=== PATIENT | female | born 1965 ===

== ENCOUNTER 2018-01-28 20:18 | Emergency (ER) | payer OTHER ==
[2018-01-28 20:38] VITALS: RESP 20
[2018-01-28] MEDS ORDERED: Sodium Chloride 0.9% 500 ML IV ONE (21:53)
--- NOTE | 2018-01-28 21:54 | C.PDOC ---
History Of Present Illness 52yo female, otherwise well, comes to ER for evaluation of vaginal bleeding x 10 days. Patient states her LMP was in August, and since then she has not had a menstrual period. Patient states she has been having heavy bleeding, and today with clots as well; she uses around 6 pads per day. Patient also reports feeling weak and lightheaded. No fever, chills, chest pain, shortness of breath, abdominal pain or other complaints. Time Seen by Provider: 01/28/18 20:54 Chief Complaint (Nursing): Female Genitourinary History Per: Patient History/Exam Limitations: no limitations Onset/Duration Of Symptoms: Days (10) Current Symptoms Are (Timing): Still Present Abnormal Vaginal Bleeding: Yes Last Menstral Period: August, Past Medical History Reviewed: Historical Data, Nursing Documentation, Vital Signs Vital Signs: Last Vital Signs Temp 98.1 F 01/28/18 20:30 Pulse 83 01/28/18 20:30 Resp 20 01/28/18 20:30 BP 135/83 01/28/18 20:30 Pulse Ox 100 01/28/18 20:30 - Medical History PMH: Diabetes Surgical History: No Surg Hx Family History: States: No Known Family Hx - Social History Hx Alcohol Use: No Hx Substance Use: No - Immunization History Hx Tetanus Toxoid Vaccination: Yes Hx Influenza Vaccination: Yes Hx Pneumococcal Vaccination: Yes Review Of Systems Except As Marked, All Systems Reviewed And Found Negative. Constitutional: Positive for: Weakness Cardiovascular: Positive for: Light Headedness. Negative for: Chest Pain Respiratory: Negative for: Shortness of Breath Gastrointestinal: Negative for: Nausea, Vomiting, Abdominal Pain, Diarrhea Genitourinary: Positive for: Vaginal Bleeding Physical Exam - Physical Exam Appears: Non-toxic, No Acute Distress Skin: Normal Color, Warm, Dry Head: Atraumatic, Normacephalic Eye(s): bilateral: Normal Inspection Neck: Normal ROM, Supple Chest: Symmetrical Cardiovascular: Rhythm Regular Respiratory: Normal Breath Sounds Gastrointestinal/Abdominal: Normal Exam, Soft Pelvic: Other (deferred) Extremity: Normal ROM, No Pedal Edema Neurological/Psych: Oriented x3 ED Course And Treatment - Laboratory Results Result Diagrams: 01/28/18 22:05 O2 Sat by Pulse Oximetry: 100 (RA) Pulse Ox Interpretation: Normal - Physician Consult Information Time Consulting Physician Contacted: 22:26 Physician Contacted: Tara Marcos Outcome Of Conversation: 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 FU OUTPT OBGYN Medical Decision Making Medical Decision Making: Impression: 52yo female with vaginal bleeding x 10 days Plan: -- CBC -- Urine -- IV Fluids Disposition Counseled Patient/Family Regarding: Studies Performed, Diagnosis, Need For Followup - Disposition Referrals: [facility] [Outside] [facility] [Outside] [facility] [Other] Disposition: HOME/ ROUTINE Disposition Time: 22:27 Condition: GOOD Instructions: Heavy Periods (DC) Forms: [employer] (Albanian) Print Language: MOSOTHO - Clinical Impression Clinical Impression: DUB (dysfunctional uterine bleeding) - Scribe Statement The provider has reviewed the documentation as recorded by the Kathy Verduzco Provider Attestation: All medical record entries made by the Kathy were at my direction and personally dictated by me. I have reviewed the chart and agree that the record accurately reflects my personal performance of the history, physical exam, medical decision making, and the department course for this patient. I have also personally directed, reviewed, and agree with the discharge instructions and disposition.
[2018-01-28 22:09] LABS: MEAN CELL VOLUME 82.7 fL (81.0-99.0); MEAN CORPUSCULAR HEMOGLOBIN 28.3 pg (27.0-31.0); MEAN CORPUSCULAR HGB CONC 34.3 g/dL (33.0-37.0); MEAN PLATELET VOLUME 9.2 fL (7.2-11.7); RBC 3.35 Mil/uL (3.80-5.20); RED CELL DISTRIBUTION WIDTH 14.3 % (11.5-14.5); WHITE BLOOD COUNT 5.4 K/uL (4.8-10.8)
[2018-01-28 22:24] LABS: HEMOGLOBIN 9.5 g/dL (11.0-16.0)
[2018-01-28 23:15] VITALS: BP 132/80; PULSE 82; TEMP 98; O2SAT 98
== END 2018-01-28 23:14 | disposition home or self-care (01) ==
LOC: C.ER 20:18
DX: N93.8 Other specified abnormal uterine and vaginal bleeding (principal)
CPT/HCPCS: 85027; 99284; J7040

== ENCOUNTER 2018-03-08 09:24 | Outpatient (CLI) | payer OTHER | END 2018-03-08 09:25 | disposition home or self-care (01) | LOC: C.USIC 09:24 | DX: N93.9 Abnormal uterine and vaginal bleeding, unspecified (principal); R10.2 Pelvic and perineal pain; N85.2 Hypertrophy of uterus; N83.201 Unspecified ovarian cyst, right side; N85.8 Other specified noninflammatory disorders of uterus ==